=== PATIENT | male | born 1950 | race Caucasian/White ===

== ENCOUNTER 2019-02-12 18:11 | Emergency (ER) | payer MEDICARE, MEDICAID ==
--- NOTE | 2019-02-12 18:47 | CT ---
CT brain. HISTORY: Altered mental status. Noncontrast enhanced CT images of the brain obtained. There is diffuse cortical atrophy and deep white matter ischemic changes. No evidence of acute intracranial masses, hemorrhages, strokes or contusion seen. Old bilateral areas of lacunar infarction seen. IMPRESSION: Cortical atrophy and deep white matter ischemic changes.
[2019-02-12] MEDS ORDERED: Dextrose 50% Abboject 50 ML SYRINGE ONE (18:52)
[2019-02-12 18:59] LABS: #Basophils 0.1 thou/uL (0.0-0.2); #Eosinphils 0.1 thou/uL (0.0-0.7); #Neutrophils 7.9 thou/uL (1.40-6.50); %Basophils 0.7 % (0.0-1.0); %Eosinophils 1.2 % (0.0-10.0); %Lymphocytes 17.9 % (21.0-51.0); %Monocytes 8.7 % (0.0-10.0); %Neutrophils 71.6 % (42.0-75.0); Hemoglobin 14.2 g/dL (14.0-18.0); Mean Corpuscular HGB CONC 33.5 g/dL (32.0-36.0); Mean Corpuscular Hemoglobin 31.5 pg (27.0-31.0); Mean Corpuscular Volume 93.9 fL (78.0-98.0); Mean Platelet Volume 6.5 fL (7.4-10.4); Platelet Count 268 thou/uL (130-400); RBC Distribution Width 12.4 % (11.5-14.5); Red Blood Cell (RBC) Count 4.51 mill/uL (4.70-6.10)
[2019-02-12 19:09] LABS: Bilirubin Negative (Negative); Blood, Urine Negative (Negative); Clarity CLEAR (Clear); Glucose, Urine (Dipstick) 100 mg/dL (Negative); Leukocyte Negative (Negative); Nitrite Negative (Negative); Protein, Urine (Dipstick) Negative (Neg-Trace); Specific Gravity, Urine 1.006 (1.002-1.036); Urobilinogen 0.2 mg/dL (0.2-1.0); pH, Urine 5.5 (5.0-9.0)
[2019-02-12 19:21] LABS: ALT (SGPT) 12 U/L (8-55); AST (SGOT) 17 U/L (5-34); Albumin 4.6 g/dL (3.4-4.8); Alkaline Phosphatase 109 U/L (40-150); Anion Gap 13 mmol/L (10-20); BUN (Urea Nitrogen) 18 mg/dL (8.4-25.7); Bilirubin, Total 0.3 mg/dL (0.2-1.2); CK (CPK) 87 U/L (30-200); Calc. Creatinine Clearance 0 mL/min (70-130); Calcium 9.9 mg/dL (7.8-10.44); Carbon Dioxide 26 mmol/L (23-31); Chloride 103 mmol/L (98-107); Estimated GFR-MDRD 84; Globulin 3.4 g/dL (2.4-3.5); Glucose 72 mg/dL (80-115); Lipase 32 U/L (8-78); Potassium 3.9 mmol/L (3.5-5.1); Sodium 138 mmol/L (136-145)
[2019-02-12 19:22] LABS: Acetaminophen Less than 6.0 mcg/mL (10.0-30.0); Alcohol Less than 10 mg/dL (Less than 10); Salicylate Less than 8.0 mg/dL (15.0-30.0)
[2019-02-12 19:22] LABS: Amphetamine Not Detected (NotDetected); Barbiturates Screen Not Detected (NotDetected); Benzodiazepine Screen Not Detected (NotDetected); Cocaine Metabolite Screen Not Detected (NotDetected); Medtox Control Line Valid? VALID (VALID); Medtox Reader # READER 4; Methadone Not Detected (NotDetected); Methamphetamine Not Detected (NotDetected); Opiate Screen Not Detected (NotDetected); Oxycodone Screen Not Detected (NotDetected); Phencyclidine (PCP) Not Detected (NotDetected); THC/Cannabinoid Screen Not Detected (NotDetected); Tricyclic Screen Not Detected (NotDetected)
== END 2019-02-12 20:35 | disposition home or self-care (01) ==
LOC: ERS 18:11
DX: E11.649 Type 2 diabetes mellitus with hypoglycemia without coma (principal); F41.9 Anxiety disorder, unspecified; F31.9 Bipolar disorder, unspecified; F17.210 Nicotine dependence, cigarettes, uncomplicated; I10 Essential (primary) hypertension; E11.9 Type 2 diabetes mellitus without complications; Z79.4 Long term (current) use of insulin
CPT/HCPCS: 36415; 36416; 70450; 80053; 80306; 80307; 81003; 82140; 82550; 83690; 84484; 85025; 93005; 96361; 96374

== ENCOUNTER 2022-12-24 18:46 | Observation (INO) | payer OTHER, MEDICAID ==
[2022-12-24 20:28] VITALS: BMI 18.5
[2022-12-24] MEDS ORDERED: Ondansetron ODT 4 MG TAB PO PRN (20:35)
[2022-12-24] MEDS ORDERED: Senokot S 8.6-50 MG TAB PO PRN (20:35)
[2022-12-24] MEDS ORDERED: Acetaminophen 325 MG TAB PO PRN (20:35)
[2022-12-24] MEDS ORDERED: HumaLOG 300 UNITS/3 ML VIAL SC PRN (20:36)
[2022-12-24] MEDS ORDERED: Dextrose 50% Abboject 50 ML SYRINGE SLOW IVP PRN (20:36)
[2022-12-24] MEDS ORDERED: Dextrose 5% in Water 1,000 ML IV PRN (20:36)
[2022-12-24 21:36] LABS: #Basophils 0.1 thou/uL (0.0-0.2); #Eosinphils 0.4 thou/uL (0.0-0.7); #Lymphocytes 2.3 thou/uL (1.20-3.40); #Monocytes 0.9 thou/uL (0.11-0.59); #Neutrophils 5.9 thou/uL (1.40-6.50); %Basophils 0.8 % (0.0-1.0); %Eosinophils 3.7 % (0.0-10.0); %Lymphocytes 24.2 % (21.0-51.0); %Monocytes 9.6 % (0.0-10.0); %Neutrophils 61.7 % (42.0-75.0); Hemoglobin 13.1 g/dL (14.0-18.0); Mean Corpuscular HGB CONC 32.1 g/dL (32.0-36.0); Mean Corpuscular Hemoglobin 29.8 pg (27.0-31.0); Mean Corpuscular Volume 92.9 fl (78.0-98.0); Mean Platelet Volume 7.9 fL (7.4-10.4); Platelet Count 180 10x3/uL (130-400); RBC Distribution Width 12.6 % (11.5-14.5); White Blood Cell (WBC) Count 9.5 10x3/uL (4.8-10.8)
[2022-12-24 21:42] LABS: ALT (SGPT) 13 U/L (8-55); AST (SGOT) 22 U/L (5-34); Alkaline Phosphatase 76 U/L (40-110); Anion Gap 12 mmol/L (10-20); BUN (Urea Nitrogen) 24 mg/dL (8.4-25.7); Bilirubin, Total 0.4 mg/dL (0.2-1.2); Calc. Creatinine Clearance 64 mL/min (70-130); Calcium 9.1 mg/dL (7.8-10.44); Carbon Dioxide 24 mmol/L (23-31); Chloride 104 mmol/L (98-107); Estimated GFR 92; Globulin 3.1 g/dL (2.4-3.5); Glucose 112 mg/dL (83-110); Potassium 4.1 mmol/L (3.5-5.1); Protein, Total 7.1 g/dL (5.8-8.1); Sodium 136 mmol/L (136-145)
[2022-12-24] MEDS: Famotidine 20 MG TAB PO SCH (22:20)
[2022-12-24] MEDS: Gabapentin 300 MG CAP PO SCH (22:21)
[2022-12-25] MEDS: Gabapentin 300 MG CAP PO SCH ×2 (08:26→20:38)
[2022-12-25] MEDS: Lisinopril 5 MG TAB PO SCH (08:26)
[2022-12-25] MEDS: Aspirin 81 mg Enteric Coated Tablet PO SCH (08:26)
[2022-12-25] MEDS: Ferrous Gluconate 324 MG TAB PO SCH ×2 (08:26→17:15)
[2022-12-25] MEDS: Famotidine 20 MG TAB PO SCH ×2 (08:26→20:38)
[2022-12-26] MEDS: Famotidine 20 MG TAB PO SCH (08:28)
[2022-12-26] MEDS: Aspirin 81 mg Enteric Coated Tablet PO SCH (08:28)
[2022-12-26] MEDS: Ferrous Gluconate 324 MG TAB PO SCH (08:28)
[2022-12-26] MEDS: Gabapentin 300 MG CAP PO SCH (08:29)
[2022-12-26] MEDS: Lisinopril 5 MG TAB PO SCH ×2 (08:29→08:40)
[2022-12-26 11:53] VITALS: BP 118/64; TEMP 97.3
== END 2022-12-26 16:21 | disposition home or self-care (01) ==
LOC: T4-A 18:46 → INTOOBSV 18:46 → T4-A 18:53 → MSONC 20:02
PROVIDERS: ADMIT Internal Medicine; ATTEND Internal Medicine
DX: E11.649 Type 2 diabetes mellitus with hypoglycemia without coma (principal); G93.41 Metabolic encephalopathy; I10 Essential (primary) hypertension; F41.9 Anxiety disorder, unspecified; F31.9 Bipolar disorder, unspecified; Z96.41 Presence of insulin pump (external) (internal); Z79.82 Long term (current) use of aspirin; Z79.899 Other long term (current) drug therapy; Z59.82 Transportation insecurity; Z59.89 Other problems related to housing and economic circumstances
CPT/HCPCS: 80053; 82962 ×3; 85025; G0378 ×3; 36415; 36416